=== PATIENT | female | born 2000 | race Caucasian/White ===

== ENCOUNTER 2021-07-07 18:38 | Inpatient (IN) ==
[2021-07-07] MEDS ORDERED: SODIUM CHLORIDE 0.9% 1000ML 2,000 ML IV ONE (18:44)
[2021-07-07] MEDS ORDERED: ONDANSETRON INJ 2 MG/ML 2 ML VIAL IV STA (18:45)
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
[2021-07-07 19:03] LABS: Basophils # (auto) 0.02 K/uL (0-0.2); Basophils % (auto) 0.2 %; Eosinophils # (auto) 0.01 K/uL (0-0.5); Eosinophils % (auto) 0.1 %; Hematocrit (blood only) 41.8 % (37-47); Hemoglobin 14.1 g/dL (12.0-16.0); Immature Granulocytes # (auto) 0.01 K/uL (0.00-0.02); Immature Granulocytes % (auto) 0.1 %; Lymphocytes % (auto) 18.3 %; Mean Corpuscular Hemoglobin 31.3 pg (25-34); Mean Corpuscular Hgb Conc 33.7 g/dL (32-36); Mean Corpuscular Volume 92.7 fL (80-100); Mean Platelet Volume 10.4 fL (7.4-10.4); Monocytes # (auto) 0.38 K/uL (0.11-0.59); Monocytes % (auto) 4.6 %; Neutrophils # (auto) 6.27 K/uL (1.4-6.5); Neutrophils % (auto) 76.7 %; Platelet Count 279 K/uL (130-400); RDW Coefficient of Variation 12.7 % (11.5-14.5); RDW Standard Deviation 43.4 fL (36.4-46.3); Red Blood Count 4.51 M/uL (4.2-5.4); White Blood Count 8.19 K/uL (4.8-10.8)
[2021-07-07 19:11] LABS: Base Excess VBG -5.7 mEq/L; Oxygen Saturation VBG 78.3 %; pH VBG 7.35 (7.36-7.41)
[2021-07-07 19:18] LABS: Pregnancy Test, Serum Negative (Negative)
[2021-07-07 19:25] LABS: Albumin Globulin Ratio 1.1 (0.9-2); Albumin Level 4.3 gm/dl (3.4-5.0); Bilirubin,Total 0.9 mg/dl (0.2-1.0); Calcium 9.5 mg/dl (8.5-10.1); Creatinine Clr Calc Pharmacy 98.3 ml/min; Est GFR (African American) 122.3 ml/min; Est GFR (Non-African American) 105.5 ml/min; Globulin 3.8 gm/dl (2.5-4.0); Potassium 4.4 mmol/L (3.5-5.1); Total Protein 8.1 gm/dl (6.0-8.3)
[2021-07-07 19:33] LABS: Appearance Urine Clear (Clear); Bilirubin Urine Negative (Negative); Blood Urine Negative (Negative); Color Urine Yellow; Glucose Urine UA 3+ (Negative); Ketones Urine 4+ (Negative); Leukocyte Esterase Urine Negative (Negative); Nitrite Urine Negative (Negative); Protein Urine Negative (Negative); Specific Gravity Urine 1.034 (1.000-1.030); Urobilinogen Urine Negative (Negative)
[2021-07-07] MEDS ORDERED: NovoLIN-R INSULIN PER UNIT CHARGE IV STA (19:49)
[2021-07-07] MEDS ORDERED: SODIUM CHLORIDE 0.9% 1000ML 1,000 ML IV ONE (21:17)
[2021-07-07] MEDS ORDERED: ONDANSETRON HOME PACK 4MG OD TAB PO ONE (22:13)
--- NOTE | 2021-07-07 22:54 | XRay Report ---
XR KUB/Abdomen 1 view CLINICAL HISTORY: constipation. COMPARISON STUDY: No previous studies for comparison. TECHNIQUE: Single view of the abdomen. FINDINGS: The bowel gas pattern is within normal limits without evidence for dilatation or obstruction. Scatter ed fecal material is present within the colon without evidence for significant fecal stasis, impactio n or obstruction. There is no evidence for organomegaly or gross intra-abdominal mass. No abnormal ca lcifications are seen along the course of the urinary tracts bilaterally. No acute osseous pathology. IMPRESSION: 1.No acute intra-abdominal abnormality. ACT 112: Negative or not required by law. Electronically signed by: Jaspal Yoder M.D. 07/07/2021 10:53 PM
[2021-07-07 23:14] LABS: BUN Creatinine Ratio 20.3 (10-20); Calcium 8.1 mg/dl (8.5-10.1); Creatinine Clr Calc Pharmacy 131.6 ml/min; Est GFR (African American) 149.7 ml/min; Est GFR (Non-African American) 129.2 ml/min; Potassium 4.1 mmol/L (3.5-5.1)
[2021-07-07] MEDS ORDERED: CARBOHYDRATES FOR HYPOGLYCEMIA PO PRN (23:22)
[2021-07-07] MEDS ORDERED: STAT IV Infusion **Titration per Protocol STA (23:22)
[2021-07-07] MEDS ORDERED: GLUCOSE 40% GEL 15 GM TUBE PO PRN (23:22)
[2021-07-07] MEDS ORDERED: GLUCOSE 10 TABS/TUBE PO PRN (23:22)
[2021-07-07] MEDS ORDERED: GLUCAGON FOR INJ 1 MG VIAL SQ PRN (23:22)
[2021-07-07] MEDS ORDERED: DKA GOAL RANGE 150-250 mg/dl ONE (23:22)
[2021-07-07] MEDS ORDERED: DEXTROSE 50% 50 ML SYRINGE IV PRN (23:22)
[2021-07-07] MEDS ORDERED: INSULIN REGULAR 250 UNITS in SODIUM CHLORIDE 0.9% 247.5 ML IV SCH (23:30)
[2021-07-08] MEDS ORDERED: STAT IV Infusion **Titration per Protocol STA ×2 (00:09)
--- NOTE | 2021-07-08 00:10 | History & Physical Report ---
Date of Service July 08, 2021 Assessment & Plan (1) Acute hyperglycemia: Plan: 21yo female with Type I DM presenting with hyperglycemia, anion gap now resolved, CO2 improving, pH=7.32 Patient changed her insulin pump location 4 days ago Has had DKA once before -Continue Insulin gtt for now - monitor labs q 4 hours -Normosol at 125mL/hr -Keep NPO -Check HgbA1C -Pharmacy glycemic management consultation appreciated -K repletion with 40mEq -Mg repletion with 2gm IV (2) Nausea: Plan: Most likely secondary to above -Zofran PRN -Maalox PRN (3) Depression: Plan: Chronic -Continue Zoloft 200mg daily Plan: F/E/N - Normosol at 125ml/hr with pending fluids (K or D5 pending lab results per DKA protocol), chemistry q 4 hours, NPO for now Ppx - SCDs to bilateral LE Code - Patient is DNR/DNI per discussion with her Dispo - Admit to medical History of Present Illness Chief Complaint: Elevated blood sugar Primary Care Provider: Chandni Izaguirre DO Celine Mcmahon is a 21yo female with history of Type I DM since the age of 6, insulin gtt in place which she manages herself without difficulty. Patient woke this morning feeling her usual self. She ate breakfast at 08:30. When she checked her blood sugar at 14:00 it was elevated to 354. She increased her basal rate by 60% for one hour as instructed in her care plan. Her repeat blood sugar was again elevated to 353. Around 15:00 she developed nausea with multiple episodes of nonbloody/non- bilious vomiting and a sore throat. She ate some crackers and drank some water but otherwise has not eaten since breakfast. Patietn denies fever, chills, rigors, sweats. She feels some slight pressure in her chest. Denies cough, SOB, abdominal pain, nausea, vomiting, diarrhea or constipation She is not vaccinated against Covid-19. In the ER she was administered Zofran, and 3L of NSS. Her labs initially with HCO3 of 20 which then decreased to 16. Patient also reports feeling worse after receiving the IVF. She has ongoing nausea and reflux symptoms as well as fatigue. ER Course: NSS x 3L, Insulin gtt, Zofran Allergies Allergy/AdvReac Type Severity Reaction Status Date / Time No Known Allergies Allergy Unverified 07/07/21 18:57 Home Medications Medication Instructions Recorded Confirmed Type etonogestrel 68 mg subdermal 68 mg SUBDERMAL CONTINOUS 07/07/21 07/07/21 History implant (Nexplanon) insulin aspart U-100 100 unit/mL 0 unit CONTINUOUS SUBCUTANEOUS 07/07/21 07/07/21 History subcutaneous solution (Novolog INFUSION CONTINOUS U-100 Insulin aspart) sertraline 100 mg tablet 200 mg PO DAILY 07/07/21 07/07/21 History Past Med/Surg History Medical History Type 1 diabetes Surgical History No pertinent past surgical history Social History Smoking Status: Never smoker Hx Alcohol Use: No Hx Substance Use: No Preferred Language: Telugu Communication Ability: Effective Business [employer] Program Chair Required: No Beliefs That Will Affect Care: None Current Living Situation: Alone Other Information That Helps Us Care for You: No Feels Safe at Home: Yes Safety Concerns: Feels Safe At This Time Assistive Devices: None Review of Systems Review of Systems: All systems reviewed & are unremarkable except as noted in HPI & below Physical Exam Physical Exam: General: patient resting comfortably, NAD, non-toxic in appearance, AA&O x 4 Skin: warm, dry, intact, no rashes or lesions HEENT: NC/AT, PERRL, EOMI, anicteric sclera, conjunctiva without injection, external ear normal to inspection and nontender, nares patent, moist mucus membranes, dentition intact, no oropharyngeal lesions, neck supple, trachea midline, no LAD, no thyromegaly, no JVD Heart: +S1/S2, regular, no m/r/g Lungs: equal air entry bilaterally, no rales/rhonchi/wheezes Abd: +BS, soft, NT/ND, no masses/organomegaly/ascites Ext: warm, 2+ pulses in UE/LE bilaterally, no clubbing/cyanosis or edema Neuro: nonfocal, patient AA&O x 4, speech intact, no facial droop, moving all extremities on command with equal strength 5/5 Results & Data Results & Data ([facility]) Vital Signs (Past 12 Hours) Vital Signs Temp Pulse Pulse Resp BP BP Pulse Ox 07/07/21 23:42 118 H 16 116/56 L 97 07/07/21 21:09 94 H 18 122/61 100 07/07/21 20:10 109 H 16 112/74 100 07/07/21 19:06 98 H 98 07/07/21 18:57 37.0 C 99 H 18 127/82 98 Laboratory Results Laboratory Results WBC 8.19 K/uL (4.8-10.8) 07/07/21 18:52 RBC 4.51 M/uL (4.2-5.4) 07/07/21 18:52 Hgb 14.1 g/dL (12.0-16.0) 07/07/21 18:52 Hct 41.8 % (37-47) 07/07/21 18:52 MCV 92.7 fL (80-100) 07/07/21 18:52 MCH 31.3 pg (25-34) 07/07/21 18:52 MCHC 33.7 g/dL (32-36) 07/07/21 18:52 RDW Std Deviation 43.4 fL (36.4-46.3) 07/07/21 18:52 RDW Coeff of Mya 12.7 % (11.5-14.5) 07/07/21 18:52 Plt Count 279 K/uL (130-400) 07/07/21 18:52 MPV 10.4 fL (7.4-10.4) 07/07/21 18:52 Immature Gran % (Auto) 0.1 % 07/07/21 18:52 Neut % (Auto) 76.7 % 07/07/21 18:52 Lymph % (Auto) 18.3 % 07/07/21 18:52 Ransom % (Auto) 4.6 % 07/07/21 18:52 Eos % (Auto) 0.1 % 07/07/21 18:52 Baso % (Auto) 0.2 % 07/07/21 18:52 Neut # (Auto) 6.27 K/uL (1.4-6.5) 07/07/21 18:52 Lymph # (Auto) 1.50 K/uL (1.2-3.4) 07/07/21 18:52 Ransom # (Auto) 0.38 K/uL (0.11-0.59) 07/07/21 18:52 Eos # (Auto) 0.01 K/uL (0-0.5) 07/07/21 18:52 Baso # (Auto) 0.02 K/uL (0-0.2) 07/07/21 18:52 Immature Gran # (Auto) 0.01 K/uL (0.00-0.02) 07/07/21 18:52 VBG pH 7.32 (7.36-7.41) L 07/08/21 02:02 VBG pCO2 35 mmHg (38-50) L 07/07/21 18:53 VBG pO2 44 mmHg 07/07/21 18:53 VBG HCO3 19 mmol/L 07/07/21 18:53 VBG O2 Saturation 78.3 % 07/07/21 18:53 VBG Base Excess -5.7 mEq/L 07/07/21 18:53 Barometric Pressure 728.1 mm/Hg 07/07/21 18:53 Sodium 136 mmol/L (136-145) 07/08/21 02:02 Potassium 3.3 mmol/L (3.5-5.1) L 07/08/21 02:02 Chloride 108 mmol/L (98-107) H 07/08/21 02:02 Carbon Dioxide 19 mmol/L (21-32) L 07/08/21 02:02 Anion Gap 9 (3-11) 07/08/21 02:02 BUN 11 mg/dl (6-23) 07/08/21 02:02 Creatinine 0.66 mg/dl (0.6-1.2) 07/08/21 02:02 Est Cr Clr Drug Dosing 117.6 ml/min 07/08/21 02:02 Est GFR ( Amer) 144.3 ml/min 07/08/21 02:02 Est GFR (Non-Af Amer) 124.5 ml/min 07/08/21 02:02 BUN/Creatinine Ratio 16.7 (10-20) 07/08/21 02:02 Glucose 142 mg/dl (70-99(Fasting)) H 07/08/21 02:02 Calcium 8.2 mg/dl (8.5-10.1) L 07/08/21 02:02 Phosphorus 1.4 mg/dl (2.5-4.9) L* 07/08/21 02:02 Magnesium 1.5 mg/dl (1.7-2.4) L 07/08/21 02:02 Total Bilirubin 0.9 mg/dl (0.2-1.0) 07/07/21 18:52 AST 15 U/L (13-39) 07/07/21 18:52 ALT 13 U/L (7-52) 07/07/21 18:52 Alkaline Phosphatase 88 U/L (34-104) 07/07/21 18:52 Total Protein 8.1 gm/dl (6.0-8.3) 07/07/21 18:52 Albumin 4.3 gm/dl (3.4-5.0) 07/07/21 18:52 Globulin 3.8 gm/dl (2.5-4.0) 07/07/21 18:52 Albumin/Globulin Ratio 1.1 (0.9-2) 07/07/21 18:52 TSH 0.831 uIu/ml (0.300-4.500) 07/07/21 18:52 HCG, Qual Negative (Negative) 07/07/21 18:52 Urine Color Yellow 07/07/21 19:25 Urine Appearance Clear (Clear) 07/07/21 19:25 Urine pH 5.0 (4.5-7.5) 07/07/21 19:25 Ur Specific Munday 1.034 (1.000-1.030) H 07/07/21 19:25 Urine Protein Negative (Negative) 07/07/21 19:25 Urine Glucose (UA) 3+ (Negative) H 07/07/21 19:25 Urine Ketones 4+ (Negative) H 07/07/21 19:25 Urine Blood Negative (Negative) 07/07/21 19: Urine Nitrite Negative (Negative) 07/07/21 19:25 Urine Bilirubin Negative (Negative) 07/07/21 19:25 Urine Urobilinogen Negative (Negative) 07/07/21 19:25 Ur Leukocyte Esterase Negative (Negative) 07/07/21 19:25 SARS-CoV-2 (PCR) NEGATIVE (Negative) 07/07/21 23:38 Influenza Type A (PCR) Negative (Neg) 07/07/21 23:38 Influenza Type B (PCR) Negative (Neg) 07/07/21 23:38 RSV (RT-PCR) Negative (Neg) 07/07/21 23:38 Impressions KUB X-Ray 07/07/21 21:17 XR KUB/Abdomen 1 view CLINICAL HISTORY: constipation. COMPARISON STUDY: No previous studies for comparison. TECHNIQUE: Single view of the abdomen. FINDINGS: The bowel gas pattern is within normal limits without evidence for dilatation or obstruction. Scattered fecal material is present within the colon without evidence for significant fecal stasis, impaction or obstruction. There is no evidence for organomegaly or gross intra-abdominal mass. No abnormal calcifications are seen along the course of the urinary tracts bilaterally. No acute osseous pathology. IMPRESSION: 1.No acute intra-abdominal abnormality. ACT 112: Negative or not required by law. Electronically signed by: Jaspal Yoder M.D. 07/07/2021 10:53 PM PG Care Time/CCT Total # of Minutes Spent Total Time Spent with Patient: Total time spent is greater than 50% in coordination of care (as documented) at patient's floor/unit and/or counseling patient: Coding Level of Care Code 20052 Initial Inpt Care Lvl 2 Diagnoses Acute hyperglycemia R73.9 Nausea R11.0 Depression F32.A
[2021-07-08 00:32] LABS: Influenza A virus by PCR Negative (Neg); Influenza B virus by PCR Negative (Neg); RSV by PCR Negative (Neg); SARS CoV2 RNA(COVID-19) InHosp NEGATIVE (Negative)
[2021-07-08] MEDS ORDERED: PENDING 1/2NSS+40mEq KCL IVF SCH (01:25)
[2021-07-08] MEDS ORDERED: ACETAMINOPHEN 325 MG TAB PO PRN (01:25)
[2021-07-08] MEDS ORDERED: ALUMINUM/MAGNESIUM SUSP 30 ML UDC PO PRN (01:25)
[2021-07-08] MEDS ORDERED: DKA GOAL RANGE 150-250 mg/dl ONE (01:25)
[2021-07-08] MEDS ORDERED: INSULIN REGULAR 250 UNITS in SODIUM CHLORIDE 0.9% 247.5 ML IV SCH (01:25)
[2021-07-08] MEDS ORDERED: ONDANSETRON INJ 2 MG/ML 2 ML VIAL IV PRN (01:25)
[2021-07-08] MEDS ORDERED: PENDING D5 1/2NS+20mEq KCL IVF SCH (01:25)
[2021-07-08] MEDS ORDERED: NORMOSOL-R 1,000 ML IV SCH (01:25)
[2021-07-08] MEDS ORDERED: PHARMACY GLYCEMIC MGMT CONSULT PRN (01:42)
[2021-07-08] MEDS ORDERED: GLUCOSE 40% GEL 15 GM TUBE PO PRN (01:45)
[2021-07-08] MEDS ORDERED: CARBOHYDRATES FOR HYPOGLYCEMIA PO PRN (01:45)
[2021-07-08] MEDS ORDERED: GLUCOSE 10 TABS/TUBE PO PRN (01:45)
[2021-07-08] MEDS ORDERED: DEXTROSE 50% 50 ML SYRINGE IV PRN (01:45)
[2021-07-08] MEDS ORDERED: D5W AND 1/2NSS + 20MEQ KCL 20 MEQ/1,000 ML BAG IV SCH (01:45)
[2021-07-08] MEDS ORDERED: GLUCAGON FOR INJ 1 MG VIAL IM PRN (01:45)
[2021-07-08] MEDS ORDERED: SERTRALINE HCL 100 MG TABLET PO SCH ×2 (02:00→09:00)
[2021-07-08 02:54] LABS: BUN Creatinine Ratio 16.7 (10-20); Calcium 8.2 mg/dl (8.5-10.1); Creatinine Clr Calc Pharmacy 117.6 ml/min; Est GFR (African American) 144.3 ml/min; Est GFR (Non-African American) 124.5 ml/min; Magnesium 1.5 mg/dl (1.7-2.4); Phosphorus 1.4 mg/dl (2.5-4.9); Potassium 3.3 mmol/L (3.5-5.1)
[2021-07-08] MEDS ORDERED: POTASSIUM CHLORIDE CRTAB 20 MEQ TABCR PO STA (03:25)
[2021-07-08] MEDS: MAGNESIUM SULFATE / D5W 1 GM/100 ML BAG IV SCH ×2 (04:17→05:59)
[2021-07-08 06:03] LABS: Anion Gap 9 (3-11); BUN Creatinine Ratio 17.5 (10-20); Blood Urea Nitrogen 10 mg/dl (6-23); Carbon Dioxide 17 mmol/L (21-32); Chloride 108 mmol/L (98-107); Creatinine Clr Calc Pharmacy 138.1 ml/min; Est GFR (African American) > 150.0 ml/min; Est GFR (Non-African American) 130.7 ml/min; Glucose 248 mg/dl (70-99(Fasting)); Magnesium 1.9 mg/dl (1.7-2.4); Potassium 3.8 mmol/L (3.5-5.1); Sodium 134 mmol/L (136-145)
[2021-07-08] MEDS ORDERED: INSULIN ASPART PER UNIT SC SCH ×2 (07:30)
[2021-07-08 09:55] LABS: BUN Creatinine Ratio 13.1 (10-20); Calcium 8.2 mg/dl (8.5-10.1); Est GFR (African American) 148.1 ml/min; Est GFR (Non-African American) 127.8 ml/min; Magnesium 2.2 mg/dl (1.7-2.4); Phosphorus 1.9 mg/dl (2.5-4.9)
[2021-07-08] MEDS ORDERED: INSULIN GLARGINE SOLOSTAR 100 UNITS/ML 3 ML PEN SC ONE (10:30)
--- NOTE | 2021-07-08 10:41 | Pharmacy Report ---
Pharmacy Glycemic Short Note 2 - Date of Service July 08, 2021 - Glycemic Short BSG Results (Last 24 hours): 07/07/21 07/07/21 07/08/21 18:52 22:36 02:02 Glucose 332 H* 260 H 142 H 07/08/21 07/08/21 05:29 09:14 Glucose 248 H 143 H OUTPATIENT ANTIDIABETIC REGIMEN: * Novolog pump: * Basal settings: - =1.2unit/hr, - =1.5unit/hr, -=1.4unit/hr, = 1.4unit/hr * 7 day avg TDD = 46unit/day * CF=50, CR=5 ASSESSMENT: * Pt presents in mild DKA (7.35/20, AG=15). Pharmacy consulted to assist with glycemic management. Home insulin pump turned off, and insulin infusion initiated per DKA protocol. * This AM, BSGs within goal range. pH >7.3, bicarb >15, and AG closed. Discussed with team, and diet ordered. Plan to transition off the insulin drip to SQ as patient does not have insulin pump supplies with her to resume her pump. * Will give 30 units Lantus now, and initiate Novolog CF/CR 50:6 based upon pump settings, with desired ~2hr overlap with insulin drip. PLAN FOR INPATIENT GLYCEMIC CONTROL: * Hold Novolog pump * Basal insulin * Lantus 30units X 1 * Bolus insulin * NovoLog per scale ACHS * Goal Range: Low 110 mg/dL - High 140 mg/dL * Correction Factor: 50 mg/dL/unit * Nutritional / Prandial insulin per carb ratio of 1 unit per 6 grams CHO consumed PLAN FOR DISCHARGE: * Discussed with patient. Plan to transition back to pump at discharge as patient does not have pump supplies with her. Patient states she has done this in the past and understands that she will place her basal rate on hold until 2 4 hours post-Lantus dose administered in house. She will be able to utilize her pump to bolus upon re-attachment on discharge prior to the 24hr Lantus administration.
[2021-07-08] MEDS: INSULIN ASPART PER UNIT SC SCH ×2 (11:36→14:47)
[2021-07-08 14:24] LABS: Estimated Average Glucose 151 mg/dl; Hemoglobin A1C 6.9 % (4.5-5.6)
--- NOTE | 2021-07-08 14:36 | Discharge Summary ---
Date of Service July 08, 2021 Admission HPI Per Admitting Provider Celine Mcmahon is a 21yo female with history of Type I DM since the age of 6, insulin gtt in place which she manages herself without difficulty. Patient woke this morning feeling her usual self. She ate breakfast at 08:30. When she checked her blood sugar at 14:00 it was elevated to 354. She increased her basal rate by 60% for one hour as instructed in her care plan. Her repeat blood sugar was again elevated to 353. Around 15:00 she developed nausea with multiple episodes of nonbloody/non- bilious vomiting and a sore throat. She ate some crackers and drank some water but otherwise has not eaten since breakfast. Carmelo denies fever, chills, rigors, sweats. She feels some slight pressure in her chest. Denies cough, SOB, abdominal pain, nausea, vomiting, diarrhea or constipation She is not vaccinated against Covid-19. In the ER she was administered Zofran, and 3L of NSS. Her labs initially with HCO3 of 20 which then decreased to 16. Patient also reports feeling worse after receiving the IVF. She has ongoing nausea and reflux symptoms as well as fatigue. ER Course: NSS x 3L, Insulin gtt, Zofran Principal Diagnosis Hyperglycemia, not diagnostic of DKA, nausea and vomiting Discharge Exam Constitutional WD/WN, vitals as above Eyes + anicteric sclerae; normal pupil size Respiratory normal respiratory effort Gastrointestinal (Abdomen) Percussion/Palpation: abdomen soft; abdomen nontender Skin no rashes, warm and dry Neurologic moves all extremities and awake; not confused Psychiatric A+Ox3, euthymic affect Discharge Data Allergies Allergy/AdvReac Type Severity Reaction Status Date / Time No Known Allergies Allergy Unverified 07/07/21 18:57 Consultations 07/07/21 23:59 ED Decision to Admit Stat Hospital Course (1) Acute hyperglycemia: Celine Mcmahon is a 21 year old female admitted to [facility] on July 08, 2020 due to hyperglycemia, nausea and vomiting. She was diagnosed with hyperglycemia with ketosis but no significant acidosis to make diagnosis of DKA. This was treated however as diabetic ketoacidosis with intravenous insulin drip and fluids. She converted to Lantus 30 units on day of discharge and should restart her insulin pump tomorrow morning. Ondansetron has been prescribed as needed for nausea/vomiting although this appears to have reso lved currently. Hemoglobin A1C was 6.9. Recommend following up with her occupational health physician as needed. (2) Nausea: (3) Depression: Total Time Total Time Spent Total Time Spent (In Minutes): 35 Discharge Plan Discharge Items Patient Disposition: Home - Self-Care Reason For Visit: hyperglycemia Discharge Diagnosis: Hyperglycemia, not diagnostic of DKA, nausea and vomiting Condition on Discharge: Good Activity: Resume your previous activity Non-emergency contact: Primary Care Provider Call non-emergency contact if: you have any medication questions and your symptoms worsen Follow-up/Referrals: Chandni Izaguirre, DO [Primary Care Provider] - Diet: Carb Count or DM1 Addtl Attending Provider Instructions: You were admitted to [facility] on July 08, 2020 due to hyperglycemia, nausea and vomiting. You were diagnosed with hyperglycemia with ketosis but no significant acidosis to make diagnosis of DKA. This was treated however as diabetic ketoacidosis with intravenous insulin drip and intravenous fluids. You were given Lantus 30 units on day of discharge therefore do not restart your insulin pump. However please continue to cover your meals and correction factor with either your pump or subcutaneous insulin. Ondansetron has been prescribed as needed for nausea/vomiting. Of note your hemoglobin A1C was 6.9. Kind regards, Dr Mohan Mcclellan Pending Studies at Discharge: No Stand-Alone Forms: My [facility], Smoking Cessation Medications and DC Order Prescriptions: New ondansetron 4 mg tablet,disintegrating 4 mg PO Q4H PRN (Reason: nausea and vomiting) Qty: 10 RF: 0 Continued sertraline 100 mg tablet 200 mg PO DAILY RF: 0 insulin aspart U-100 [Novolog U-100 Insulin aspart] 100 unit/mL solution 0 unit continuous subcutaneous infusion CONTINOUS RF: 0 Nexplanon 68 mg Implant 68 mg SUBDERMAL CONTINOUS RF: 0 Discharge Orders: Discharge Order (Routine); Ordered 07/08/21 Ordered By: Mohan Mcclellan Admission Data Admit Date/Time: 07/08/21 00:09 Attending Provider: Mohan Mcclellan Admit Provider: Francesca Campbell Primary Care Provider: Chandni Izaguirre Other Providers: Adrian,Francesca M Other Interventions: Discharge Summary Assessment (RN) Last Done: 07/08/21 14:51 Coding Level of Care Code OBSERV/HOSP SAME DATE LVL 3 Diagnoses Acute hyperglycemia R73.9 Nausea R11.0 Depression F32.A
[2021-07-09] MEDS ORDERED: INSULIN ASPART PER UNIT SC SCH
== END 2021-07-08 15:40 | disposition home or self-care (01) | DRG 639 ==
LOC: ED 18:38 → 3E 07-08 00:09 → SUATTDRO 07-08 00:09 → 3E 07-08 01:07
DX: Z66 Do not resuscitate; Z96.41 Presence of insulin pump (external) (internal); E10.65 Type 1 diabetes mellitus with hyperglycemia; Z79.899 Other long term (current) drug therapy; F32.A Depression, unspecified